=== PATIENT | female | born 1950 ===

== ENCOUNTER 2023-04-04 15:21 | Outpatient (CLI) | payer OTHER ==
[~2023-04-04 15:21] MED LIST: ATIVAN1 M1; ATORVASTATIN CA40 MG; ESCITALOPRA5 MG/5 ML; LOSARTAN POTASS25 MG; ORAPRED ODT10 MG; VERELAN PM300 MG; XARELTO20 MG
[2023-04-04 16:23] LABS: INR 1.05; PARTIAL THROMBOPLASTIN TIME 24.4 SECONDS (22.0-34.0)
== END 2023-04-04 15:25 | disposition home or self-care (01) ==
LOC: LAB 15:21
PROVIDERS: ATTEND Internal Medicine Geriatric Medicine
DX: D68.9 Coagulation defect, unspecified (principal)

== ENCOUNTER 2023-04-06 08:45 | Day surgery (SDC) | payer OTHER ==
[2023-03-31 14:39] LABS: HEMOGLOBIN 10.7 g/dL (12.0-15.00); MEAN CORPUSCULAR HEMOGLOBIN 20.5 pg (27.00-32.0); MEAN CORPUSCULAR HGB CONC 30.6 g/dl (32.0-36.0); PLATELET COUNT 384 K/uL (150-450); RED BLOOD COUNT 5.22 M/uL (4.00-6.00); RED CELL DISTRIBUTION WIDTH 19.7 % (11.5-14.5)
[2023-03-31 14:44] LABS: INR 1.57; PARTIAL THROMBOPLASTIN TIME 35.2 SECONDS (22.0-34.0)
[2023-03-31 14:55] LABS: ALBUMIN 3.7 gm/dL (3.4-5.0); BILIRUBIN TOTAL 0.59 mg/dL (0.3-1.2); CALCIUM 9.4 mg/dL (8.5-10.1); CREATININE SERUM 1.31 mg/dL (0.55-1.02); GFR 40.02; GLOBULINA 3.4 G/DL (2.4-3.5); POTASSIUM 4.82 mEq/L (3.5-5.1); TOTAL PROTEIN 7.1 gm/dL (6.4-8.2)
[2023-03-31 14:58] LABS: PROTHROMBIN TIME 15.9 SECONDS (9.0-11.5)
[2023-03-31 14:59] LABS: MEAN CELL VOLUME 67.1 fL (80.00-100.00)
[2023-03-31 15:18] LABS: PH,URINE 5.5 (5.0-8.0); URINE APPEARANCE Cloudy; URINE BILIRRUBIN Negative (NEGATIVE); URINE BLOOD Negative; URINE COLOR Yellow; URINE GLUCOSE Negative (NEGATIVE); URINE LEUKOCYTE Small; URINE NITRATE Negative; URINE PROTEIN Negative (NEGATIVE); URINE UROBILINOGEN 0.2 E.U./dl
[2023-03-31 15:22] LABS: URINE BACTERIA 1072.1 uL (0.0-1933); URINE EPITHELIAL CELLS 57.5 uL (0.0-38.8); URINE RBC 3.1 uL (0.0-20.8)
[2023-04-06] MEDS ORDERED: HYDROCORTISONE SODIUM SUCC/PF 100 MG VIAL ONE (10:51)
[2023-04-06] MEDS ORDERED: METRONIDAZOLE/SODIUM CHLORIDE 500 MG/100 ML PIGGYBACK IV ONE (10:55)
[2023-04-06] MEDS ORDERED: CEFTRIAXONE SODIUM 2,000 MG VIAL ONE (10:55)
[2023-04-06] MEDS ORDERED: BUPIVACAINE HCL/PF 0.5% 30ML ML ONE (11:51)
[2023-04-06] MEDS ORDERED: POVIDONE-IODINE 118 ML BOTT TOP ONE (11:51)
[2023-04-06] MEDS ORDERED: LIDOCAINE HCL 1%/Epi 20ML VIAL IJ ONE (11:51)
[2023-04-06] MEDS ORDERED: HYDROCORTISONE SODIUM SUCC/PF 100 MG VIAL IV ONE (12:15)
[2023-04-06] MEDS ORDERED: POVIDONE-IODINE 118 ML BOTT TOP SCH (13:00)
[2023-04-06] MEDS ORDERED: BUPIVACAINE HCL 250MG/50ML VIAL IJ SCH (13:15)
[2023-04-06] MEDS ORDERED: CEFTRIAXONE SODIUM 2,000 MG VIAL IV SCH (13:15)
[2023-04-06] MEDS ORDERED: LIDOCAINE HCL/EPINEPHRINE 10 ML VIAL IJ SCH (13:15)
[2023-04-06] MEDS ORDERED: DIBUCAINE 30 GM TUBE RECTAL SCH (13:15)
[2023-04-06] MEDS ORDERED: METRONIDAZOLE/SODIUM CHLORIDE 500 MG/100 ML PIGGYBACK IV SCH (13:15)
[2023-04-06] MEDS ORDERED: HEMOSTATIC MATRIX 1 KIT KIT TOP SCH (13:15)
== END 2023-04-06 16:25 | disposition home or self-care (01) ==
LOC: CIR.AMB 08:45
PROVIDERS: ATTEND Colon & Rectal Surgery
DX: K64.2 Third degree hemorrhoids (principal); K64.8 Other hemorrhoids; K64.4 Residual hemorrhoidal skin tags; Z20.822 Contact with and (suspected) exposure to COVID-19